=== PATIENT | female | born 1990 | race Caucasian/White ===

== ENCOUNTER 2016-03-24 03:36 | Inpatient (IN) | payer OTHER ==
[~2016-03-24] VITALS: Ht 167.6 cm; Wt 87.5 kg
[2016-03-24] VITALS (29 sets, daily range): BP systolic 114–158; BP diastolic 63–94
[~2016-03-24 03:36] MED LIST: AMOXICILLIN500 MG PO; KEFLEX500 MG PO; PRENATAL TABLE1 EAC3 PO; TYLENOL COLD M PO
[2016-03-24] MEDS ORDERED: VALTREX50 MG/ML PO (04:51)
[2016-03-24 10:21] LABS: EOSINOPHIL (%) 0 % (0-5); HEMATOLOGY COMMENT 1 SMEAR COMPATIBLE; IMMATURE GRANULOCYTE (%) 0.3 % (0.0-0.7); IMMATURE GRANULOCYTE COUNT 0.1 K/uL; LYMPHOCYTE COUNT 0.8 K/uL (1.0-2.8); MCH 33.7 PG (29.0-34.0); MCHC 35.4 G/DL (30.0-36.0); MCV 95.4 FL (83-99); MEAN PLAT.VOLUME 13.1 uM^3 (9.5-12.4); MONOCYTE (%) 2.1 % (3-12); MONOCYTE COUNT 0.4 K/uL (0-0.8); NEUTROPHIL (%) 93.1 % (45-76); NEUTROPHIL COUNT 17.8 K/uL (1.8-6.4); PLAT.SUFFICIENCY ADEQUATE; PLATELET COUNT 169 K/uL (156-360); RBC DIS.WIDTH-CV 13.6 % (11.8-14.6); RED BLOOD COUNT 4.09 M/uL (3.80-5.20); USER ID CCL; WHITE BLOOD COUNT 19.1 K/uL (4.1-10.2)
[2016-03-25] VITALS (14 sets, daily range): BP systolic 110–141; BP diastolic 52–76
[2016-03-25] MEDS ORDERED: MOTRIN800 MG PO (03:46)
[2016-03-26 07:13] VITALS: BP 112/59
[2016-03-26 07:39] LABS: EOSINOPHIL (%) 0.7 % (0-5); EOSINOPHIL COUNT 0.1 K/uL (0-0.3); HEMATOCRIT 33.2 % (36.0-46.0); IMMATURE GRANULOCYTE (%) 0.2 % (0.0-0.7); LYMPHOCYTE COUNT 1.9 K/uL (1.0-2.8); MCH 32.6 PG (29.0-34.0); MCHC 33.4 G/DL (30.0-36.0); MCV 97.6 FL (83-99); MEAN PLAT.VOLUME 11.8 uM^3 (9.5-12.4); MONOCYTE (%) 6.7 % (3-12); MONOCYTE COUNT 0.6 K/uL (0-0.8); NEUTROPHIL (%) 69.9 % (45-76); PLATELET COUNT 123 K/uL (156-360); RBC DIS.WIDTH-CV 14.4 % (11.8-14.6); RBC DIS.WIDTH-SD 50.6 % (39-53)
[2016-03-26 07:42] LABS: WHITE BLOOD COUNT 8.5 K/uL (4.1-10.2)
[2016-03-26 14:46] VITALS: BP 131/88
[2016-03-26 23:38] VITALS: BP 129/65
[2016-03-27 08:46] VITALS: BP 130/76
== END 2016-03-27 16:50 | disposition home or self-care (01) | DRG 774 ==
LOC: LDRP-OP 03:36 → 2WEST 03:37 → LDRP-OP 04-21 16:10
PROVIDERS: Advanced Practice Midwife; Obstetrics & Gynecology
PROC: 00HU33Z Insertion of Infusion Device into Spinal Canal, Percutaneous Approach (ICD-10-PCS; principal; 2016-03-25)
PROC: 3E0R3CZ (ICD-10-PCS; principal; 2016-03-25)
PROC: 0W8NXZZ Division of Female Perineum, External Approach (ICD-10-PCS; principal; 2016-03-25)
PROC: 10E0XZZ Delivery of Products of Conception, External Approach (ICD-10-PCS; principal; 2016-03-25)
PROC: 10907ZC Drainage of Amniotic Fluid, Therapeutic from Products of Conception, Via Natural or Artificial Opening (ICD-10-PCS; principal; 2016-03-25)
DX: O99.824 Streptococcus B carrier state complicating childbirth (principal); O75.2 Pyrexia during labor, not elsewhere classified; O98.32 Other infections with a predominantly sexual mode of transmission complicating childbirth; A60.09 Herpesviral infection of other urogenital tract; Z3A.40 40 weeks gestation of pregnancy; Z37.0 Single live birth; O99.214 Obesity complicating childbirth; E66.9 Obesity, unspecified; Z68.32 Body mass index [BMI] 32.0-32.9, adult; O26.893 Other specified pregnancy related conditions, third trimester; M41.9 Scoliosis, unspecified
CPT/HCPCS: 83030; 85025; 86850; 86900; 86901; C1755; G0378; J0595; J2540; J2790; J3010; J7120

== ENCOUNTER 2017-07-26 02:40 | Emergency (ER) | payer OTHER ==
[~2017-07-26] VITALS: Ht 167.6 cm; Wt 90.0 kg
[~2017-07-26 02:40] MED LIST changes: +MOTRIN800 MG PO; +VALTREX50 MG/ML PO
[2017-07-26] MEDS ORDERED: ZOFRAN4 MG PO (03:22)
[2017-07-26] MEDS ORDERED: NORCO 5/3251 TABLET PO (03:22)
[2017-07-26 03:57] VITALS: BP 127/70
== END 2017-07-26 03:58 | disposition home or self-care (01) ==
LOC: EME 02:40
PROC: 2W3QX1Z Immobilization of Right Lower Leg using Splint (ICD-10-PCS; principal; 2017-07-26)
DX: S93.401A Sprain of unspecified ligament of right ankle, initial encounter (principal); S82.831A Other fracture of upper and lower end of right fibula, initial encounter for closed fracture; W18.30XA Fall on same level, unspecified, initial encounter
CPT/HCPCS: 99281; 99284